=== PATIENT | female | born 1955 | race Two or more races ===

== ENCOUNTER 2016-12-19 14:42 | Emergency (ER) | payer OTHER ==
[~2016-12-19] VITALS: Ht 157.5 cm; Wt 77.1 kg
[2016-12-19 15:38] LABS: Basophils # (auto) 0 uL; Basophils % (auto) 0.4 % (0.0-2.0); DEFINITIVE VIEW TRANSMISSION; Eosinophils # (auto) 0.1 uL; Eosinophils % (auto) 1.6 % (0.0-7.0); Hematocrit 27.1 % (36.0-46.0); Hemoglobin 8.4 g/dL (12.2-16.2); Lymphocytes % (auto) 34.5 % (10.0-50.0); Mean Corpuscular Hemoglobin 23.4 pg (28.0-32.0); Mean Corpuscular Hgb Conc. 31.2 g/dL (32.0-36.0); Mean Corpuscular Volume 75.1 fL (80.0-100.0); Mean Platelet Volume 8.6 fL (7.4-10.4); Monocytes # (auto) 0.4 uL; Monocytes % (auto) 4.8 % (0.0-12.0); Neutrophils # (auto) 5.2 uL; Neutrophils % (auto) 58.7 % (37.0-80.0); Platelet Count (auto) 378 10^3/uL (140-450); Red Cell Distribution Width 17.4 % (11.6-16.0); White Blood Cell 8.8 10^3/uL (4.4-10.8)
[2016-12-19 15:51] LABS: Albumin 3.4 g/dL (3.4-5.0); Calcium 8.4 mg/dL (8.5-10.1); Magnesium 1.5 mg/dL (1.6-2.6); Potassium 4.3 mmol/L (3.5-5.1)
[2016-12-19 15:53] LABS: BUN/Creatinine Ratio 14.5
[2016-12-19 15:55] LABS: Bilirubin, Total 0.3 mg/dL (0.2-1.0)
[2016-12-19] MEDS ORDERED: NALBUPHINE HCL 10 MG/1ml INJECTION IV ONE (16:00)
[2016-12-19] MEDS ORDERED: ONDANSETRON HCL 4 MG/2 ML VIAL IV ONE (16:00)
[2016-12-19 16:26] VITALS: BP 168/77
== END 2016-12-19 17:17 | disposition home or self-care (01) ==
LOC: ER 14:42
DX: S42.292A Other displaced fracture of upper end of left humerus, initial encounter for closed fracture (principal); S80.01XA Contusion of right knee, initial encounter; E11.65 Type 2 diabetes mellitus with hyperglycemia; D50.9 Iron deficiency anemia, unspecified; N39.0 Urinary tract infection, site not specified; E11.21 Type 2 diabetes mellitus with diabetic nephropathy; I10 Essential (primary) hypertension; W01.0XXA Fall on same level from slipping, tripping and stumbling without subsequent striking against object, initial encounter; Y93.89 Activity, other specified; Y92.008 Other place in unspecified non-institutional (private) residence as the place of occurrence of the external cause; Y99.8 Other external cause status; Z90.49 Acquired absence of other specified parts of digestive tract
CPT/HCPCS: 29105; 36415; 73030; 73562; 80053; 83735; 85025; 96374; 96375; 99285; J2300; J2405

== ENCOUNTER → 2023-01-29 | Outpatient (CLI) | payer OTHER ==
[2023-01-29 10:04] LABS: Basophils # (auto) 0 10 ^3/uL (0-0.2); Basophils % (auto) 0.2 % (0.0-2.0); Eosinophils # (auto) 0.1 10 ^3/uL (0-0.8); Eosinophils % (auto) 2.1 % (0.0-7.0); Hemoglobin 10.2 g/dL (12.2-16.2); Lymphocytes # (auto) 3.3 10 ^3/uL (0.4-5.4); Lymphocytes % (auto) 54.1 % (10.0-50.0); Mean Corpuscular Hemoglobin 30.4 pg (28.0-32.0); Mean Corpuscular Volume 92.1 fL (80.0-100.0); Monocytes # (auto) 0 10 ^3/uL (0-1.3); Monocytes % (auto) 0.7 % (0.0-12.0); Neutrophils # (auto) 2.6 10 ^3/uL (1.6-8.6); Neutrophils % (auto) 42.9 % (37.0-80.0); Nucleated Red Blood Cells % 0.1 %; Red Blood Cells 3.36 10^6/uL (4.0-5.20); Red Cell Distribution Width 15.1 % (11.8-14.3)
[2023-01-29 10:12] LABS: Urine Bacteria FEW /hpf (None Seen); Urine Blood Negative /uL (Negative); Urine Specific Gravity 1.006 (1.001-1.035); Urine WBC 8 /hpf (0 - 5); Urine WBC Clumps PRESENT /hpf (None Seen)
[2023-01-29 10:59] LABS: Albumin 3.9 g/dL (3.4-5.0); Calcium 9.3 mg/dL (8.5-10.1); Magnesium 1.2 mg/dL (1.6-2.6); Potassium 3.6 mmol/L (3.5-5.1)
[2023-01-29 11:04] LABS: Bilirubin, Total 0.4 mg/dL (0.2-1.0); Total Protein 7.8 g/dL (6.4-8.2)
[2023-01-29 11:06] LABS: BUN/Creatinine Ratio 17.9 (10.0-20.0)
== END | disposition home or self-care (01) ==
LOC: LAB 09:47
PROVIDERS: ATTEND Internal Medicine
DX: E61.2 Magnesium deficiency (principal); E79.0 Hyperuricemia without signs of inflammatory arthritis and tophaceous disease; R94.6 Abnormal results of thyroid function studies; E55.9 Vitamin D deficiency, unspecified; R82.998 Other abnormal findings in urine; R82.79 Other abnormal findings on microbiological examination of urine; R82.90 Unspecified abnormal findings in urine; D51.9 Vitamin B12 deficiency anemia, unspecified; E78.49 Other hyperlipidemia; R68.89 Other general symptoms and signs; R73.09 Other abnormal glucose
CPT/HCPCS: 36415; 80053; 80061; 81001; 82306; 82607; 83036; 83735; 84443; 84550; 85025; 87086

== ENCOUNTER → 2023-04-02 | Outpatient (CLI) | payer OTHER ==
[2023-04-02 10:36] LABS: Hematocrit 31.4 % (36.0-46.0); Hemoglobin 10.2 g/dL (12.2-16.2); Mean Corpuscular Hgb Conc. 32.3 g/dL (32.0-36.0); Mean Corpuscular Volume 92.7 fL (80.0-100.0); Red Blood Cells 3.39 10^6/uL (4.0-5.20); Red Cell Distribution Width 16.3 % (11.8-14.3); White Blood Cell 6.4 10^3/uL (4.4-10.8)
[2023-04-02 10:58] LABS: Urine Bacteria NONE SEEN /hpf (None Seen); Urine Blood Negative /uL (Negative); Urine Specific Gravity 1.004 (1.001-1.035); Urine WBC 26 /hpf (0 - 5)
[2023-04-02 11:06] LABS: Basophils % (manual) 0 (0.0-2.0); Blast Cells 0; Metamyelocytes % 0; Myelocytes % 0; Promyelocytes % 0
[2023-04-02 11:12] LABS: Albumin 3.6 g/dL (3.4-5.0); Magnesium 1.2 mg/dL (1.6-2.6); Potassium 4.5 mmol/L (3.5-5.1)
[2023-04-02 11:18] LABS: Bilirubin, Total 0.3 mg/dL (0.2-1.0); Total Protein 7.4 g/dL (6.4-8.2); Uric Acid 7.2 mg/dL (2.6-6.0)
[2023-04-02 11:23] LABS: Folate (Folic Acid) > 24.00 ng/mL (5.38-24)
[2023-04-02 12:14] LABS: Band Neutrophils % (manual) 2; Eosinophils % (manual) 6 (0-7); Lymphocytes % (manual) 52 (10.0-50.0); Monocytes % (manual) 5 (0-12); Reactive Lymphocytes 5
== END | disposition home or self-care (01) ==
LOC: LAB 09:58
PROVIDERS: ATTEND Internal Medicine
DX: R73.09 Other abnormal glucose (principal); E78.41 Elevated Lipoprotein(a); R68.84 Jaw pain; E61.2 Magnesium deficiency; E79.0 Hyperuricemia without signs of inflammatory arthritis and tophaceous disease; D51.9 Vitamin B12 deficiency anemia, unspecified; R82.991 Hypocitraturia; R82.90 Unspecified abnormal findings in urine; R94.6 Abnormal results of thyroid function studies
CPT/HCPCS: 36415; 80053; 80061; 81001; 82306; 82607; 82746; 83036; 83735; 84443; 84550; 85007; 85027; 87086

== ENCOUNTER → 2023-07-23 | Outpatient (CLI) | payer OTHER ==
[2023-07-23 09:44] LABS: Basophils # (auto) 0 10 ^3/uL (0-0.2); Basophils % (auto) 0.3 % (0.0-2.0); Eosinophils # (auto) 0.4 10 ^3/uL (0-0.8); Eosinophils % (auto) 4.5 % (0.0-7.0); Hematocrit 35.8 % (36.0-46.0); Hemoglobin 11.8 g/dL (12.2-16.2); Lymphocytes % (auto) 38.6 % (10.0-50.0); Mean Corpuscular Hemoglobin 30.8 pg (28.0-32.0); Mean Corpuscular Hgb Conc. 32.9 g/dL (32.0-36.0); Mean Corpuscular Volume 93.7 fL (80.0-100.0); Monocytes # (auto) 0.5 10 ^3/uL (0-1.3); Monocytes % (auto) 6.4 % (0.0-12.0); Neutrophils # (auto) 3.9 10 ^3/uL (1.6-8.6); Neutrophils % (auto) 50.2 % (37.0-80.0); Red Blood Cells 3.82 10^6/uL (4.0-5.20); White Blood Cell 7.9 10^3/uL (4.4-10.8)
[2023-07-23 10:24] LABS: Urine Bacteria FEW /hpf (None Seen); Urine Blood Negative /uL (Negative); Urine Clarity Clear (Clear); Urine Color Colorless (Yellow); Urine Protein, UAD Negative (Negative); Urine Specific Gravity 1.005 (1.001-1.035); Urine Urobilinogen Normal (Negative); Urine WBC 25 /hpf (0 - 5)
[2023-07-23 10:56] LABS: Alanine Aminotransferase 21 U/L (7-40); Albumin 4.6 g/dL (3.2-4.8); Alkaline Phosphatase 69 U/L (46-116); Anion Gap 7 (5-15); Aspartate Aminotransferase 27 U/L (13-40); Blood Urea Nitrogen 17 mg/dL (9-23); Calcium 9.4 mg/dL (8.7-10.4); Carbon Dioxide 24 mmol/L (20-30); Chloride 104 mmol/L (98-107); Glucose 67 mg/dL (74-106); Magnesium 1.3 mg/dL (1.6-2.6); Potassium 4.4 mmol/L (3.5-5.1); Sodium 135 mmol/L (136-145)
[2023-07-23 10:57] LABS: Bilirubin, Total 0.4 mg/dL (0.2-1.0); Total Protein 7.6 g/dL (5.7-8.2)
[2023-07-23 11:01] LABS: Folate (Folic Acid) > 24.00 ng/mL (>5.38)
== END | disposition home or self-care (01) ==
LOC: LAB 09:20
PROVIDERS: ATTEND Nurse Practitioner Family
DX: M19.011 Primary osteoarthritis, right shoulder (principal); I10 Essential (primary) hypertension; M06.9 Rheumatoid arthritis, unspecified; E11.9 Type 2 diabetes mellitus without complications; E78.5 Hyperlipidemia, unspecified
CPT/HCPCS: 36415; 80053; 81001; 82607; 82746; 83036; 83735; 84443; 84550; 85025; 87086; 87088; 87186

== ENCOUNTER → 2023-11-08 | Outpatient (CLI) | payer OTHER ==
[2023-11-08 10:09] LABS: Hematocrit 36.6 % (36.0-46.0); Mean Corpuscular Hgb Conc. 32.9 g/dL (32.0-36.0); Mean Corpuscular Volume 94.3 fL (80.0-100.0); Red Blood Cells 3.88 10^6/uL (4.0-5.20); Red Cell Distribution Width 13.7 % (11.8-14.3)
[2023-11-08 10:13] LABS: Band Neutrophils % (manual) 0; Basophils % (manual) 0 (0.0-2.0); Blast Cells 0; Metamyelocytes % 0; Myelocytes % 0; Promyelocytes % 0; Reactive Lymphocytes 0
[2023-11-08 10:44] LABS: Urine Bacteria FEW /hpf (None Seen); Urine Blood Negative /uL (Negative); Urine Budding Yeast MODERATE /hpf (None Seen); Urine Clarity Clear (Clear); Urine Color Colorless (Yellow); Urine Protein, UAD Negative (Negative); Urine Specific Gravity 1.008 (1.001-1.035); Urine Urobilinogen Normal (Negative); Urine WBC 33 /hpf (0 - 5)
[2023-11-08 11:02] LABS: Alanine Aminotransferase 24 U/L (7-40); Albumin 4.5 g/dL (3.2-4.8); Alkaline Phosphatase 67 U/L (46-116); Anion Gap 7 (5-15); Aspartate Aminotransferase 28 U/L (13-40); BUN/Creatinine Ratio 13.8 (10.0-20.0); Blood Urea Nitrogen 17 mg/dL (9-23); Carbon Dioxide 28 mmol/L (20-30); Chloride 107 mmol/L (98-107); Cholesterol 203 mg/dL (< 200); Glucose 59 mg/dL (74-106); HDL Cholesterol 76 mg/dL (40-59); LDL Cholesterol 109 mg/dL (< 100); Potassium 4.3 mmol/L (3.5-5.1); Sodium 142 mmol/L (136-145); Triglycerides 108 mg/dL (< 150)
[2023-11-08 11:03] LABS: Bilirubin, Total 0.4 mg/dL (0.2-1.0); Total Protein 7.6 g/dL (5.7-8.2)
[2023-11-08 11:04] LABS: Folate (Folic Acid) > 24.00 ng/mL (>5.38)
[2023-11-08 11:19] LABS: Eosinophils % (manual) 3 (0-7); Lymphocytes % (manual) 63 (10.0-50.0); Monocytes % (manual) 1 (0-12); Platelet Estimate Adequate
[2023-11-08 11:46] LABS: Uric Acid 6.9 mg/dL (3.1-7.8)
[2023-11-08 11:47] LABS: Magnesium 1.3 mg/dL (1.6-2.6)
== END | disposition home or self-care (01) ==
LOC: LAB 09:49
PROVIDERS: ATTEND Internal Medicine
DX: R79.89 Other specified abnormal findings of blood chemistry (principal); E78.9 Disorder of lipoprotein metabolism, unspecified; R68.89 Other general symptoms and signs; R73.09 Other abnormal glucose; E61.2 Magnesium deficiency; E85.9 Amyloidosis, unspecified; R82.90 Unspecified abnormal findings in urine; D51.9 Vitamin B12 deficiency anemia, unspecified
CPT/HCPCS: 36415; 80053; 80061; 81001; 82306; 82607; 82746; 83036; 83735; 84443; 84550; 85007; 85027; 87086; 87088; 87186

== ENCOUNTER → 2023-11-26 | Outpatient (CLI) | payer OTHER ==
[2023-11-26 12:00] LABS: Free T3 2.33 pg/mL (2.3-4.2); T3 Total 1.18 ng/mL (0.60-1.81)
[2023-11-26 12:03] LABS: Free T4 (Free Thyroxine) 1.1 ng/dL (0.89-1.76)
== END | disposition home or self-care (01) ==
LOC: LAB 10:05
PROVIDERS: ATTEND Nurse Practitioner Family
DX: E78.5 Hyperlipidemia, unspecified (principal); R94.6 Abnormal results of thyroid function studies
CPT/HCPCS: 36415; 84439; 84443; 84480; 84481

== ENCOUNTER → 2024-02-24 | Outpatient (CLI) | payer OTHER ==
[2024-02-24 10:28] LABS: Urine Bacteria FEW /hpf (None Seen); Urine Blood Negative /uL (Negative); Urine Clarity Clear (Clear); Urine Color Colorless (Yellow); Urine Protein, UAD Negative (Negative); Urine Specific Gravity 1.008 (1.001-1.035); Urine Urobilinogen Normal (Negative); Urine WBC 85 /hpf (0 - 5); Urine pH 5.5 (5.0-9.0)
[2024-02-24 10:29] LABS: Hemoglobin 12.6 g/dL (12.2-16.2); Mean Corpuscular Hemoglobin 31.4 pg (28.0-32.0); Mean Corpuscular Hgb Conc. 33.3 g/dL (32.0-36.0); Mean Corpuscular Volume 94.3 fL (80.0-100.0); Red Blood Cells 4.03 10^6/uL (4.0-5.20); Red Cell Distribution Width 13.4 % (11.8-14.3); White Blood Cell 7.7 10^3/uL (4.4-10.8)
[2024-02-24 10:44] LABS: Alanine Aminotransferase 31 U/L (7-40); Albumin 4.5 g/dL (3.2-4.8); Alkaline Phosphatase 91 U/L (46-116); Anion Gap 7 (5-15); Aspartate Aminotransferase 25 U/L (13-40); Bilirubin, Total 0.3 mg/dL (0.2-1.0); Blood Urea Nitrogen 19 mg/dL (9-23); Calcium 10.1 mg/dL (8.5-10.1); Carbon Dioxide 27 mmol/L (20-30); Chloride 108 mmol/L (98-107); Cholesterol 209 mg/dL (< 200); Glucose 77 mg/dL (74-106); HDL Cholesterol 73 mg/dL (40-59); LDL Cholesterol 122 mg/dL (< 100); Magnesium 1.4 mg/dL (1.6-2.6); Potassium 4.1 mmol/L (3.5-5.1); Sodium 142 mmol/L (136-145); Total Protein 7.5 g/dL (5.7-8.2); Triglycerides 117 mg/dL (< 150)
[2024-02-24 11:00] LABS: Band Neutrophils % (manual) 0; Basophils % (manual) 0 (0.0-2.0); Blast Cells 0; Metamyelocytes % 0; Myelocytes % 0; Promyelocytes % 0; Reactive Lymphocytes 0
[2024-02-24 11:03] LABS: Folate (Folic Acid) 30.6 ng/mL (>5.38)
[2024-02-24 11:21] LABS: Uric Acid 6.1 mg/dL (3.1-7.8)
[2024-02-24 11:29] LABS: Eosinophils % (manual) 4 (0-7); Lymphocytes % (manual) 63 (10.0-50.0); Monocytes % (manual) 5 (0-12)
[2024-02-24 11:30] LABS: Platelet Estimate Adequate; RBC Morphology Normal
== END | disposition home or self-care (01) ==
LOC: LAB 09:40
PROVIDERS: ATTEND Internal Medicine
DX: E79.0 Hyperuricemia without signs of inflammatory arthritis and tophaceous disease (principal); E61.2 Magnesium deficiency; R78.89 Finding of other specified substances, not normally found in blood; E78.9 Disorder of lipoprotein metabolism, unspecified; R68.89 Other general symptoms and signs; R73.09 Other abnormal glucose; E85.9 Amyloidosis, unspecified; R82.90 Unspecified abnormal findings in urine; D51.9 Vitamin B12 deficiency anemia, unspecified
CPT/HCPCS: 36415; 80053; 80061; 81001; 82043; 82306; 82607; 82746; 83036; 83735; 84443; 84550; 85007; 85027; 87086; 87088; 87186

== ENCOUNTER → 2024-06-01 | Outpatient (CLI) | payer OTHER ==
[2024-06-01 10:47] LABS: Basophils # (auto) 0 10 ^3/uL (0-0.2); Basophils % (auto) 0.3 % (0.0-2.0); Eosinophils # (auto) 0.4 10 ^3/uL (0-0.8); Eosinophils % (auto) 6.1 % (0.0-7.0); Hematocrit 36.8 % (36.0-46.0); Hemoglobin 12.7 g/dL (12.2-16.2); Lymphocytes # (auto) 2.8 10 ^3/uL (0.4-5.4); Lymphocytes % (auto) 48.2 % (10.0-50.0); Mean Corpuscular Hemoglobin 32.2 pg (28.0-32.0); Mean Corpuscular Hgb Conc. 34.4 g/dL (32.0-36.0); Mean Corpuscular Volume 93.7 fL (80.0-100.0); Monocytes # (auto) 0.4 10 ^3/uL (0-1.3); Monocytes % (auto) 7.4 % (0.0-12.0); Neutrophils # (auto) 2.2 10 ^3/uL (1.6-8.6); Nucleated Red Blood Cells % 0.1 %; Platelet Count (auto) 226 10^3/uL (140-450); Red Blood Cells 3.93 10^6/uL (4.0-5.20); Red Cell Distribution Width 13.4 % (11.8-14.3); White Blood Cell 5.8 10^3/uL (4.4-10.8)
[2024-06-01 11:04] LABS: Urine Bacteria FEW /hpf (None Seen); Urine Blood TRACE /uL (Negative); Urine Clarity Turbid (Clear); Urine Color Light-Yellow (Yellow); Urine Protein, UAD TRACE (Negative); Urine Specific Gravity 1.013 (1.001-1.035); Urine Urobilinogen Normal (Negative); Urine WBC 103 /hpf (0 - 5); Urine WBC Clumps PRESENT /hpf (None Seen); Urine pH 5.5 (5.0-9.0)
[2024-06-01 11:30] LABS: Alanine Aminotransferase 36 U/L (7-40); Albumin 4.5 g/dL (3.2-4.8); Alkaline Phosphatase 96 U/L (46-116); Anion Gap 7 (5-15); Aspartate Aminotransferase 32 U/L (13-40); Bilirubin, Total 0.4 mg/dL (0.2-1.0); Blood Urea Nitrogen 26 mg/dL (9-23); Carbon Dioxide 25 mmol/L (20-30); Chloride 105 mmol/L (98-107); Cholesterol 210 mg/dL (< 200); Glucose 143 mg/dL (74-106); HDL Cholesterol 78 mg/dL (40-59); LDL Cholesterol 118 mg/dL (< 100); Magnesium 1.5 mg/dL (1.6-2.6); Potassium 4.5 mmol/L (3.5-5.1); Sodium 137 mmol/L (136-145); Total Protein 7.5 g/dL (5.7-8.2); Triglycerides 80 mg/dL (< 150)
[2024-06-01 11:59] LABS: Uric Acid 6.2 mg/dL (3.1-7.8)
[2024-06-01 12:01] LABS: Folate (Folic Acid) > 48.00 ng/mL (>5.38)
== END | disposition home or self-care (01) ==
LOC: LAB 09:52
PROVIDERS: ATTEND Internal Medicine
DX: E11.9 Type 2 diabetes mellitus without complications (principal); D63.8 Anemia in other chronic diseases classified elsewhere; Z68.33 Body mass index [BMI] 33.0-33.9, adult
CPT/HCPCS: 36415; 80053; 80061; 81001; 82306; 82607; 82746; 83036; 83735; 84443; 84550; 85025; 87086; 87088; 87186

== ENCOUNTER → 2024-07-14 | Outpatient (CLI) | payer OTHER ==
[2024-07-14 11:26] LABS: Potassium 4.7 mmol/L (3.5-5.1)
[2024-07-14 11:28] LABS: Calcium 10.2 mg/dL (8.7-10.4)
[2024-07-14 11:34] LABS: Albumin 4.5 g/dL (3.2-4.8)
[2024-07-14 11:35] LABS: Phosphorus 3.7 mg/dL (2.4-5.1)
== END | disposition home or self-care (01) ==
LOC: LAB 10:19
PROVIDERS: ATTEND Internal Medicine
DX: E11.9 Type 2 diabetes mellitus without complications (principal); E78.5 Hyperlipidemia, unspecified; M06.9 Rheumatoid arthritis, unspecified; D63.8 Anemia in other chronic diseases classified elsewhere
CPT/HCPCS: 36415; 80069; 83036

== ENCOUNTER → 2024-10-05 | Outpatient (CLI) | payer OTHER ==
[2024-10-05 10:23] LABS: Basophils # (auto) 0 10 ^3/uL (0-0.2); Basophils % (auto) 0.3 % (0.0-2.0); Eosinophils # (auto) 0.5 10 ^3/uL (0-0.8); Eosinophils % (auto) 9.1 % (0.0-7.0); Hematocrit 35.7 % (36.0-46.0); Hemoglobin 12.2 g/dL (12.2-16.2); Lymphocytes # (auto) 2.7 10 ^3/uL (0.4-5.4); Lymphocytes % (auto) 45.3 % (10.0-50.0); Mean Corpuscular Hemoglobin 32.1 pg (28.0-32.0); Mean Corpuscular Hgb Conc. 34.1 g/dL (32.0-36.0); Mean Corpuscular Volume 94.2 fL (80.0-100.0); Monocytes # (auto) 0.5 10 ^3/uL (0-1.3); Monocytes % (auto) 8.2 % (0.0-12.0); Neutrophils # (auto) 2.2 10 ^3/uL (1.6-8.6); Neutrophils % (auto) 37.1 % (37.0-80.0); Platelet Count (auto) 222 10^3/uL (140-450); Red Blood Cells 3.79 10^6/uL (4.0-5.20); Red Cell Distribution Width 14.1 % (11.8-14.3)
[2024-10-05 10:58] LABS: Alanine Aminotransferase 36 U/L (7-40); Albumin 4.6 g/dL (3.2-4.8); Alkaline Phosphatase 79 U/L (46-116); Anion Gap 6 (5-15); Aspartate Aminotransferase 37 U/L (13-40); Bilirubin, Total 0.5 mg/dL (0.2-1.0); Blood Urea Nitrogen 18 mg/dL (9-23); Calcium 10.1 mg/dL (8.7-10.4); Carbon Dioxide 27 mmol/L (20-31); Chloride 104 mmol/L (98-107); Cholesterol 185 mg/dL (< 200); Potassium 4.3 mmol/L (3.5-5.1); Sodium 137 mmol/L (136-145); Total Protein 7.4 g/dL (5.7-8.2); Triglycerides 142 mg/dL (< 150)
[2024-10-05 11:02] LABS: Urine Bacteria FEW /hpf (None Seen); Urine Blood Negative /uL (Negative); Urine Clarity Clear (Clear); Urine Color Colorless (Yellow); Urine Protein, UAD Negative (Negative); Urine Specific Gravity 1.005 (1.001-1.035); Urine Squamous Epithelial Cell FEW /hpf (<5); Urine Urobilinogen Normal (Negative); Urine WBC 35 /HPF (0-5); Urine WBC Clumps PRESENT /hpf (None Seen); Urine pH 5.5 (5.0-9.0)
[2024-10-05 11:04] LABS: BUN/Creatinine Ratio 12.4 (10.0-20.0)
[2024-10-05 11:09] LABS: Glucose 126 mg/dL (74-106)
[2024-10-05 11:10] LABS: HDL Cholesterol 63 mg/dL (40-59); LDL Cholesterol 111 mg/dL (< 100)
[2024-10-05 11:27] LABS: Uric Acid 6.9 mg/dL (3.1-7.8)
== END | disposition home or self-care (01) ==
LOC: LAB 09:52
PROVIDERS: ATTEND Internal Medicine
DX: R79.89 Other specified abnormal findings of blood chemistry (principal); R68.89 Other general symptoms and signs; R73.09 Other abnormal glucose; E55.9 Vitamin D deficiency, unspecified; E61.2 Magnesium deficiency; R94.6 Abnormal results of thyroid function studies; R82.90 Unspecified abnormal findings in urine; R82.79 Other abnormal findings on microbiological examination of urine; D51.9 Vitamin B12 deficiency anemia, unspecified
CPT/HCPCS: 36415; 80053; 80061; 81001; 82306; 82746; 83036; 84443; 84550; 85025; 87086

== ENCOUNTER 2024-11-13 05:48 | Emergency (ER) | payer OTHER ==
[~2024-11-13] VITALS: Ht 170.2 cm; Wt 77.1 kg
[2024-11-13 06:19] VITALS: PULSE 84; RESP 23; O2SAT 98
--- NOTE | 2024-11-13 06:33 | ED.PDOC ---
History of present illness HPI Comments A 69 year old female brought in by EMS presents to the ED with a chief complaint of hypoglycemia onset today (11/13/24). Patient states she woke up experiencing dizziness and confusion, family called 911. Upon EMS arrival, family tells EMS patient was lethargic and altered. Patient's BS was 40, was given 250 mL D-10 in route, BS increased to 142. During assessment patient states symptoms have improved. PMHx DM, HTN. Denies nausea, vomiting, diarrhea, chest pain, abdominal pain, shortness of breath, headache. No other symptoms or modifying factors present at this time. 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 History Family History Family History: Unobtainable Social History Smoker: Non-Smoker Alcohol: Denies ETOH Use Drugs: Denies Drug Use Lives In: Home Constitutional: denies: chills, diaphoresis, fatigue, fever, malaise, sweats, weakness, others EENTM: denies: blurred vision, double vision, ear bleeding, ear discharge, ear drainage, ear pain, ear ringing, eye pain, eye redness, hearing loss, mouth pain, mouth swelling, nasal discharge, nose bleeding, nose congestion, nose pain, photophobia, tearing, throat pain, throat swelling, voice changes, others Respiratory: denies: cough, hemoptysis, orthopnea, SOB at rest, shortness of breath, SOB with excertion, stridor, wheezing, others Cardiovascular: denies: chest pain, dizzy spells, diaphoresis, Dyspnea on exertion, edema, irregular heart beat, left arm pain, lightheadedness, palpitations, PND, syncope, others Gastrointestinal: denies: abdomen distended, abdominal pain, blood streaked bowels, constipated, diarrhea, dysphagia, difficulty swallowing, hematemesis, melena, nausea, poor appetite, poor fluid intake, rectal bleeding, rectal pain, vomiting, others Genitourinary: denies: abnormal vagina bleeding, burning, dyspareunia, dysuria, flank pain, frequency, hematuria, incontinence, pain, , vagina discharge, urgency, others Neurological: reports: dizziness, others (confusion); denies: fainting, headache, left sided numbness, left sided weakness, numbness, paresthesia, pre- existing deficit, right sided numbness, right sided weakness, seizure, speech problems, tingling, tremors, weakness Musculoskeletal: denies: back pain, gout, joint pain, joint swelling, muscle pain, muscle stiffness, neck pain, others Integumetry: denies: bruises, change in color, change in hair/nails, dryness, laceration, lesions, lumps, rash, wounds, others Allergic/Immunocompromised: denies: Difficulty Healing, Frequent Infections, Hives, Itching, others Hematologic/Lymphatic: denies: anemia, blood clots, easy bleeding, easy bruising, swollen glands, others Endocrine: denies: excessive hunger, excessive sweating, excessive thirst, excessive urination, flushing, intolerance to cold, intolerance to heat, unexplained weight gain, unexplained weight loss, others Psychiatric: denies: anxiety, bipolar disorder, depression, hopeless, panic di sorder, schizophrenia, sleepless, suicidal, others All Other Systems: Reviewed and Negative Physical Exam General Appearance: Moderate Distress HEENT: Normal ENT Inspection, Pharynx Normal, TMs Normal Neck: Full Range of Motion, Non-Tender, Normal, Normal Inspection Respiratory: Chest Non-Tender, Lungs Clear, No Accessory Muscle Use, No Respiratory Distress, Normal Breath Sounds Cardiovascular: No Edema, No JVD, No Murmur, No Gallop, Normal Peripheral Pulses, Regular Rate/Rhythm Breast Exam: Deferred Gastrointestinal: No Organomegaly, Non Tender, No Pulsatile Mass, Normal Bowel Sounds, Soft Genitalia: Deferred Pelvic: Deferred Rectal: Deferred Extremities: No calf tenderness, Normal capillary refill, Normal inspection, Normal range of motion, Non-tender, No pedal edema Musculoskeletal : Apperance: Normal Neurologic: Alert, No Motor Deficits, No Sensory Deficits Cerebellar Function: NOT DONE Reflexes: NOT DONE Skin: Normal Color Peripheral Pulses: 3+ Radial (R), 3+ Radial (L) Lymphatic: No Adenopathy Was a procedure done? Was a procedure done?: No Differential Diagnosis (DM) Differential Diagnosis: DKA, Electrolyte Abnormality X-Ray, Labs, Meds, VS Vital Signs Date Time Temp Pulse Resp B/P (MAP) Pulse Ox O2 Delivery O2 Flow Rate FiO2 11/13/24 06:38 174/73 11/13/24 06:19 84 23 98 Room Air* 0 21 11/13/24 06:19 97.8 84 23 174/73 (106) 98 97.8 11/13/24 06:01 88 11/13/24 05:55 98.0 90 16 179/89 (119) 94 Lab Test 11/13/24 07:29 11/13/24 06:46 Range/Units POC Glucose 63 L 70-106 mg/dl White Blood Count Pending Red Blood Count Pending Hemoglobin Pending Hematocrit Pending Mean Corpuscular Volume Pending Mean Corpuscular Hemoglobin Pending Mean Corpuscular Hemoglobin Concent Pending Red Cell Distribution Width Pending Platelet Count Pending Mean Platelet Volume Pending Neutrophils (%) (Auto) Pending Lymphocytes (%) (Auto) Pending Monocytes (%) (Auto) Pending Basophils (%) (Auto) Pending Neutrophils # (Auto) Pending Lymphocytes # (Auto) Pending Monocytes # (Auto) Pending Sodium Level 131 L 136-145 mmol/L Potassium Level 3.8 3.5-5.1 mmol/L Chloride Level 97 L 98-107 mmol/L Carbon Dioxide Level 23 20-31 mmol/L Anion Gap 11 5-15 Blood Urea Nitrogen 13 9-23 mg/dL Creatinine 1.23 H 0.550-1.02 mg/dL Glomerular Filtration Rate Calc 47 >90 mL/min BUN/Creatinine Ratio 10.6 10.0-20.0 Serum Glucose 50 L 74-106 mg/dL Calcium Level 9.3 8.7-10.4 mg/dL Troponin I High Sensitivity 5 </=34 ng/L Current Medications Medications (Trade) Dose Ordered Sig/Tab Route Start Time Stop Time Status Last Admin Clonidine HCl (Catapres Tablet) 0.2 mg ONCE ONCE PO 11/13/24 06:45 11/13/24 06:46 DC 11/13/24 06:38 Patient alert. She was feeling dizzy before calling the paramedics. Blood sugar was low for which she was given an dextrose prior to coming to the ER. States that she is feeling much better. Blood pressure slightly elevated. Was given clonidine. Denies chest pain. No leg swelling. No shortness a breath. No headache. Good muscle strength. No sign of any acute condition. Reviewed her previous visit. Explained to the patient. Continue monitoring. Time of 1ST Reevaluation: 07:02 Reevaluation 1ST: Improved Patient Education/Counseling: Diagnosis, Treatment, Prognosis Family Education/Counseling: No Family Present Additional Information The following tests were ordered, and results were reviewed by me: EKG, TROP, CBC, UA, BMP Additional Information was gathered from interviewing the following independent historians: EMS I discussed treatment and results with medical personnel and: patient Departure 1 Departure Time of Disposition: 06:39 Impression: Primary Impression: Hypoglycemia Additional Impressions: Autonomic disorder Hypertensive urgency Disposition: ADMITTED INPATIENT Admit to: Med Surg Condition: Guarded Critical Care Note Critical Care Time?: No Stability Stability form required: No Heart Score Heart Score: Heart Score Response (Comments) Value History Slightly Suspicious 0 EKG Normal 0 Age >65 2 Risk Factors >3 or Hx ASHD 2 Troponin Normal limit 0 Total 4 I personally scribed for VIVIANA HENRIQUEZ MD ([email or web address]) on 11/13/24 at 06:33. Electronically submitted by Radha Ryan ([email or web address]). I personally scribed for VIVIANA HENRIQUEZ MD ([email or web address]) on 11/13/24 at 06:35. Electronically submitted by Radha Ryan ([email or web address]). I personally scribed for VIVIANA HENRIQUEZ MD ([email or web address]) on 11/13/24 at 07:53. Electronically submitted by Radha Ryan ([email or web address]). VIVIANA HENRIQUEZ MD Nov 13, 2024 06:33
[2024-11-13] MEDS: cloNIDine HCL 0.1 MG TAB PO ONE (06:38)
--- NOTE | 2024-11-13 06:41 | ECG ---
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
[2024-11-13 07:35] VITALS: TEMP 97.9
[2024-11-13 07:37] LABS: Potassium 3.8 mmol/L (3.5-5.1)
[2024-11-13 07:38] LABS: Anion Gap 11 (5-15); Calcium 9.3 mg/dL (8.7-10.4); Carbon Dioxide 23 mmol/L (20-31); Chloride 97 mmol/L (98-107); Sodium 131 mmol/L (136-145)
[2024-11-13 07:43] LABS: BUN/Creatinine Ratio 10.6 (10.0-20.0); Blood Urea Nitrogen 13 mg/dL (9-23)
[2024-11-13 07:44] LABS: Glucose 50 mg/dL (74-106)
[2024-11-13 08:00] VITALS: BP 133/70
[2024-11-13 08:30] LABS: Hematocrit 35.4 % (36.0-46.0); Hemoglobin 12.1 g/dL (12.2-16.2); Mean Corpuscular Hemoglobin 32.3 pg (28.0-32.0); Mean Corpuscular Hgb Conc. 34.2 g/dL (32.0-36.0); Mean Corpuscular Volume 94.5 fL (80.0-100.0); Platelet Count (auto) 199 10^3/uL (140-450); Red Blood Cells 3.74 10^6/uL (4.0-5.20); Red Cell Distribution Width 13.7 % (11.8-14.3); White Blood Cell 3.1 10^3/uL (4.4-10.8)
[2024-11-13 08:31] VITALS: PULSE 84; RESP 19; O2SAT 99
[2024-11-13 08:45] LABS: Band Neutrophils % (manual) 0; Basophils % (manual) 0 (0.0-2.0); Blast Cells 0; Metamyelocytes % 0; Myelocytes % 0; Promyelocytes % 0; Reactive Lymphocytes 0
[2024-11-13 11:40] LABS: Eosinophils % (manual) 2 (0-7); Lymphocytes % (manual) 19 (10.0-50.0); Monocytes % (manual) 13 (0-12); Platelet Estimate Adequate
== END 2024-11-13 09:25 | disposition home or self-care (01) ==
LOC: ER 05:48 → EDBD 05:48 → ER 09:25
DX: E11.649 Type 2 diabetes mellitus with hypoglycemia without coma (principal); G90.9 Disorder of the autonomic nervous system, unspecified; I16.0 Hypertensive urgency; E11.9 Type 2 diabetes mellitus without complications; Z98.890 Other specified postprocedural states; Z90.49 Acquired absence of other specified parts of digestive tract
CPT/HCPCS: 36415; 80048; 82947; 82962; 84484; 85007; 85027; 93005

== ENCOUNTER → 2025-01-02 | Outpatient (CLI) | payer OTHER ==
[2025-01-02 10:30] LABS: Urine Bacteria MOD /hpf (None Seen); Urine Blood Negative /uL (Negative); Urine Budding Yeast OCCASIONAL /hpf (None Seen); Urine Clarity Clear (Clear); Urine Color Light-Yellow (Yellow); Urine Protein, UAD Negative (Negative); Urine Specific Gravity 1.009 (1.001-1.035); Urine Squamous Epithelial Cell FEW /hpf (<5); Urine Urobilinogen Normal (Negative); Urine WBC 17 /HPF (0-5)
[2025-01-02 10:32] LABS: Basophils # (auto) 0 10 ^3/uL (0-0.2); Basophils % (auto) 0.5 % (0.0-2.0); Eosinophils # (auto) 0.3 10 ^3/uL (0-0.8); Eosinophils % (auto) 5.2 % (0.0-7.0); Hematocrit 37.4 % (36.0-46.0); Hemoglobin 12.7 g/dL (12.2-16.2); Lymphocytes # (auto) 2.4 10 ^3/uL (0.4-5.4); Lymphocytes % (auto) 46.5 % (10.0-50.0); Mean Corpuscular Hemoglobin 32.6 pg (28.0-32.0); Mean Corpuscular Hgb Conc. 34.1 g/dL (32.0-36.0); Mean Corpuscular Volume 95.7 fL (80.0-100.0); Monocytes # (auto) 0.3 10 ^3/uL (0-1.3); Monocytes % (auto) 6.8 % (0.0-12.0); Neutrophils # (auto) 2.1 10 ^3/uL (1.6-8.6); Platelet Count (auto) 265 10^3/uL (140-450); Red Blood Cells 3.91 10^6/uL (4.0-5.20); Red Cell Distribution Width 13.8 % (11.8-14.3); White Blood Cell 5.1 10^3/uL (4.4-10.8)
[2025-01-02 10:40] LABS: Alanine Aminotransferase 25 U/L (7-40); Albumin 4.7 g/dL (3.2-4.8); Alkaline Phosphatase 73 U/L (46-116); Anion Gap 8 (5-15); Aspartate Aminotransferase 30 U/L (13-40); BUN/Creatinine Ratio 11.7 (10.0-20.0); Blood Urea Nitrogen 14 mg/dL (9-23); Calcium 10.2 mg/dL (8.7-10.4); Carbon Dioxide 26 mmol/L (20-31); Chloride 105 mmol/L (98-107); Magnesium 1.6 mg/dL (1.6-2.6); Potassium 4.3 mmol/L (3.5-5.1); Sodium 139 mmol/L (136-145); Total Protein 7.5 g/dL (5.7-8.2); Triglycerides 147 mg/dL (< 150)
[2025-01-02 10:41] LABS: Bilirubin, Total 0.5 mg/dL (0.2-1.0)
[2025-01-02 10:43] LABS: Cholesterol 207 mg/dL (< 200); Glucose 107 mg/dL (74-106); HDL Cholesterol 72 mg/dL (40-59); LDL Cholesterol 110 mg/dL (< 100)
[2025-01-02 10:53] LABS: Uric Acid 6.3 mg/dL (3.1-7.8)
[2025-01-02 11:01] LABS: Folate (Folic Acid) > 48.00 ng/mL (>5.38)
== END | disposition home or self-care (01) ==
LOC: LAB 09:45
PROVIDERS: ATTEND Internal Medicine
DX: R68.89 Other general symptoms and signs (principal); R79.89 Other specified abnormal findings of blood chemistry; R73.09 Other abnormal glucose; R94.6 Abnormal results of thyroid function studies; E55.9 Vitamin D deficiency, unspecified; E61.2 Magnesium deficiency; R82.90 Unspecified abnormal findings in urine
CPT/HCPCS: 36415; 80053; 80061; 81001; 82306; 82607; 82746; 83036; 83735; 84443; 84550; 85025; 87086

== ENCOUNTER 2025-04-04 09:33 | Outpatient (CLI) | payer OTHER ==
[2025-04-04 10:12] LABS: Hematocrit 37.4 % (36.0-46.0); Hemoglobin 12.9 g/dL (12.2-16.2); Mean Corpuscular Hemoglobin 32.2 pg (28.0-32.0); Mean Corpuscular Volume 93.4 fL (80.0-100.0); Nucleated Red Blood Cells % 0.0 %
[2025-04-04 10:28] LABS: Urine Protein, UAD Negative (Negative)
[2025-04-04 10:37] LABS: Alkaline Phosphatase 83 U/L (46-116); Anion Gap 11 (5-15); BUN/Creatinine Ratio 12.7 (10.0-20.0); Blood Urea Nitrogen 16 mg/dL (9-23); Carbon Dioxide 26 mmol/L (20-31); Chloride 102 mmol/L (98-107); Potassium 3.9 mmol/L (3.5-5.1); Sodium 139 mmol/L (136-145); Total Protein 7.3 g/dL (5.7-8.2)
[2025-04-04 10:38] LABS: Bilirubin, Total 0.6 mg/dL (0.2-1.0)
[2025-04-04 10:40] LABS: Alanine Aminotransferase 41 U/L (7-40); Calcium 10.7 mg/dL (8.7-10.4); Cholesterol 272 mg/dL (< 200); Glucose 154 mg/dL (74-106); HDL Cholesterol 65 mg/dL (40-59); Triglycerides 171 mg/dL (< 150)
[2025-04-04 11:00] LABS: Albumin 4.6 g/dL (3.2-4.8)
[2025-04-04 11:32] LABS: Uric Acid 6.4 mg/dL (3.1-7.8)
== END 2025-04-04 17:00 | disposition home or self-care (01) ==
LOC: LAB 09:33
PROVIDERS: ATTEND Nurse Practitioner Family
DX: E11.9 Type 2 diabetes mellitus without complications (principal); E78.49 Other hyperlipidemia; E61.2 Magnesium deficiency; E79.0 Hyperuricemia without signs of inflammatory arthritis and tophaceous disease; D51.9 Vitamin B12 deficiency anemia, unspecified; R82.79 Other abnormal findings on microbiological examination of urine; R82.998 Other abnormal findings in urine; R94.6 Abnormal results of thyroid function studies; R68.89 Other general symptoms and signs
CPT/HCPCS: 36415; 80053; 80061; 81001; 82306; 82607; 82746; 83036; 84443; 84480; 84550; 85025; 87086

== ENCOUNTER → 2025-06-28 | Outpatient (CLI) | payer OTHER ==
[2025-06-28 10:41] LABS: Hematocrit 38.2 % (36.0-46.0); Hemoglobin 12.7 g/dL (12.2-16.2); Mean Corpuscular Hemoglobin 30.7 pg (28.0-32.0); Mean Corpuscular Volume 92.0 fL (80.0-100.0); Nucleated Red Blood Cells % 0.1 %
[2025-06-28 10:45] LABS: Urine Protein, UAD Negative (Negative)
[2025-06-28 11:13] LABS: Alanine Aminotransferase 39 U/L (7-40); Alkaline Phosphatase 109 U/L (46-116); Anion Gap 10 (5-15); Calcium 10.3 mg/dL (8.7-10.4); Carbon Dioxide 29 mmol/L (20-31); Chloride 99 mmol/L (98-107); Potassium 4.3 mmol/L (3.5-5.1); Sodium 138 mmol/L (136-145)
[2025-06-28 11:14] LABS: Albumin 4.5 g/dL (3.2-4.8); BUN/Creatinine Ratio 14.1 (10.0-20.0); Bilirubin, Total 0.6 mg/dL (0.2-1.0); Blood Urea Nitrogen 22 mg/dL (9-23); Cholesterol 215 mg/dL (< 200); Glucose 269 mg/dL (74-106); HDL Cholesterol 56 mg/dL (40-59); Total Protein 7.8 g/dL (5.7-8.2); Triglycerides 201 mg/dL (< 150)
[2025-06-28 11:37] LABS: Uric Acid 6.5 mg/dL (3.1-7.8)
== END | disposition home or self-care (01) ==
LOC: LAB 10:15
PROVIDERS: ATTEND Internal Medicine
DX: E78.49 Other hyperlipidemia (principal); E61.2 Magnesium deficiency; E79.0 Hyperuricemia without signs of inflammatory arthritis and tophaceous disease; R68.89 Other general symptoms and signs; R73.09 Other abnormal glucose; R94.6 Abnormal results of thyroid function studies; R82.998 Other abnormal findings in urine; E55.9 Vitamin D deficiency, unspecified; R82.79 Other abnormal findings on microbiological examination of urine; D51.9 Vitamin B12 deficiency anemia, unspecified
CPT/HCPCS: 36415; 80053; 80061; 81001; 82306; 82607; 82746; 83036; 84443; 84550; 85025; 87086; 87088; 87186

== ENCOUNTER 2025-09-07 22:05 | Inpatient (IN) | payer OTHER ==
[~2025-09-07] VITALS: Ht 152.4 cm; Wt 63.6 kg
--- NOTE | 2025-09-07 22:21 | ECG ---
[facility] Test Date: 2025-09-07 Test Time: 22:16:36 Pat Name: KACIE MILES Department: [facility] ED Patient ID: [id number] Room: [address] [place] [address] Gender: F Guidance Counselor: shahid : 1955 Requested By: OC PATE Order Number: [id number] Reading MD: Stephane Pineda Measurements Intervals [place] Rate: 96 P: 38 DC: 143 QRS: 51 QRSD: 84 T: 61 QT: 360 QTc: 455 Interpretive Statements Sinus rhythm Electronically Signed On 09-13-2025 17:24:46 PST by Stephane Pineda Please click the below link to view image of tracing.
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
[2025-09-07 23:00] LABS: Hematocrit 38.1 % (36.0-46.0); Hemoglobin 12.7 g/dL (12.2-16.2); Mean Corpuscular Hemoglobin 31.1 pg (28.0-32.0); Mean Corpuscular Volume 93.5 fL (80.0-100.0); Nucleated Red Blood Cells % 0.1 %
[2025-09-07 23:35] LABS: Chloride 103 mmol/L (98-107); Potassium 4.6 mmol/L (3.5-5.1); Sodium 137 mmol/L (136-145)
[2025-09-07 23:36] LABS: Anion Gap 8 (5-15); Carbon Dioxide 26 mmol/L (20-31)
[2025-09-07 23:37] LABS: Calcium 9.6 mg/dL (8.7-10.4)
[2025-09-07 23:41] LABS: BUN/Creatinine Ratio 15.9 (10.0-20.0)
[2025-09-07 23:49] LABS: Blood Urea Nitrogen 24 mg/dL (9-23); Glucose 270 mg/dL (74-106)
[2025-09-08] MEDS: SODIUM CHLORIDE 0.9% 1,000 ML IV ONE (00:09)
[2025-09-08 00:27] VITALS: PULSE 82; RESP 16; O2SAT 99
[2025-09-08] MEDS ORDERED: ONDANSETRON HCL 4 MG/2 ML VIAL IV PRN (02:45)
[2025-09-08 03:34] LABS: Hematocrit 37.6 % (36.0-46.0); Hemoglobin 12.8 g/dL (12.2-16.2); Mean Corpuscular Hemoglobin 31.7 pg (28.0-32.0); Mean Corpuscular Volume 93.4 fL (80.0-100.0); Nucleated Red Blood Cells % 0.1 %
[2025-09-08 03:47] LABS: Alanine Aminotransferase 29 U/L (7-40); Albumin 4.6 g/dL (3.2-4.8); Alkaline Phosphatase 90 U/L (46-116); Anion Gap 11 (5-15); BUN/Creatinine Ratio 14.8 (10.0-20.0); Blood Urea Nitrogen 19 mg/dL (9-23); Calcium 9.7 mg/dL (8.7-10.4); Carbon Dioxide 24 mmol/L (20-31); Chloride 106 mmol/L (98-107); Potassium 4.0 mmol/L (3.5-5.1); Sodium 141 mmol/L (136-145); Total Protein 8.1 g/dL (5.7-8.2)
[2025-09-08 03:48] LABS: Bilirubin, Total 0.4 mg/dL (0.2-1.0)
--- NOTE | 2025-09-08 03:56 | DVH ---
COMPUTERIZED TOMOGRAPHY OF THE HEAD WITHOUT CONTRAST REASON FOR STUDY: Syncope COMPARISON: None TECHNIQUE: Helical tomographic scans were obtained through the brain. 2-D coronal and sagittal reformatted images are provided. Radiation optimization: All CT scans at this facility use at least one of these dose optimization techniques: Automated exposure control mA and/or kV adjustment per patient size (includes targeted exams where dose is matched to clinical indication) or iterative reconstruction. RADIATION DOSE: CTDI: 53.0 mGy DLP: 849.69 mGy-cm FINDINGS: No suspicious intracranial hyperdensity to suggest acute blood. There is no mass effect nor midline shift. There is mild generalized volume loss with compensatory enlargement of the CSF spaces. There is no hydrocephalus. The suprasellar cistern is intact. There are scattered periventricular and deep white matter hypodensities that are most consistent with chronic microangiopathic changes. The calvarium is intact. The visualized mastoid air cells and paranasal sinuses are clear. IMPRESSION: No acute intracranial abnormality. Mild generalized volume loss with chronic small vessel ischemic change.
[2025-09-08 04:00] LABS: Glucose 116 mg/dL (74-106)
[2025-09-08 04:06] LABS: INR 0.97 (0.9-1.15); Partial Thromboplastin Time 25.2 SEC (24.5-34.5); Prothrombin Time 10.3 sec (9.3-11.8)
[2025-09-08] MEDS: hydroCHLOROthiazide 25 MG TAB PO SCH (04:16)
[2025-09-08] MEDS: LOSARTAN POTASSIUM 50 MG TAB PO ONE (04:16)
[2025-09-08 04:21] LABS: Triglycerides 208 mg/dL (< 150)
[2025-09-08 04:22] LABS: Cholesterol 220 mg/dL (< 200); HDL Cholesterol 68 mg/dL (40-59)
--- NOTE | 2025-09-08 05:26 | DVHHPRES ---
History of Present Illness Resident Creating Document: YOSELIN CHEN RESIDENT History of Present Illness Patient is a 70-year-old female with past medical history of hypertension, diabetes, dyslipidemia, CKD who presented to the ED with chief complaints of dizziness and syncopal episode. As per patient and son at bedside They had a argument and patient started hyperventilating, feeling weak and dizzy after which she had a syncopal episode and had loss of consciousness for almost 4 minutes. states that the [id number] caught her while she was falling so patient did not hit her head. Patient denies any chest pain, shortness of breath, nausea, vomiting, dizziness. On arrival blood pressure was 204/73. PMHx: hypertension, diabetes, dyslipidemia, CKD PSHx: Cholecystectomy, Family history: reviewed, noncontributory Social history: denies smoking, drinking, drug use Home medication: glipizide, insulin, atorvastatin, pantoprazole Allergic history: denies Patient seen in the lobby. Patient denies any shortness of breath, dizziness, chest pain, palpitations, nausea vomiting. Blood pressure was 178/81. Review of Systems Constitutional: Yes: Weakness, Other (dizzy); No: Fever, Chills, Sweats, Malaise Eyes: No: Pain, Vision change, Conjunctivae inflammation, Eyelid inflammation, Other, Redness ENT: No: Ear pain, Ear discharge, Nose pain, Nose discharge, Nose congestion, Mouth pain, Mouth swelling, Throat pain, Throat swelling, Other Cardiovascular: No: Chest Pain, Palpitations, Orthopnea, Paroxysmal Noc. Dyspnea, Edema, Lt Headedness, Other Gastrointestinal: No: Nausea, Vomiting, Abdominal Pain, Diarrhea, Constipation, Melena, Hematochezia, Other Genitourinary: No Dysuria, No Frequency, No Incontinence, No Hematuria, No Retention, No Other Musculoskeletal: No: other, neck pain, shoulder pain, arm pain, back pain, hand pain, leg pain, foot pain Skin: No: Rash, Lesions, Jaundice, Bruising, Other Neurological: No: Weakness, Numbness, Incoordination, Change in speech, Confusion, Seizures, Other Allergies: Coded Allergies: NO KNOWN ALLERGIES (Unverified , 12/19/16) Exam Vital Signs Vital Signs Date Time Temp Pulse Resp B/P (MAP) Pulse Ox O2 Delivery O2 Flow Rate FiO2 09/08/25 02:23 77 18 178/81 (113) 100 09/08/25 00:27 Room Air* 0 21 09/08/25 00:20 98.5 98.5 Exam General: Patient alert and oriented in person, place and time. Patient following commands. HEENT: Normocephalic, atraumatic, moist mucous membranes Respiratory/pulmonary: Clear lungs bilaterally, vesicular murmurs present in almost all lung valle, no associated crackles or wheezes. Cardiovascular: Normal heart sounds S1 and S2 with no associated murmurs Abdomen: Abdomen nondistended, there is no pain to palpation in any of the abdom inal quadrants, no palpable masses. Extremities: There is no peripheral edema present at the lower extremities. Peripheral Pulses: 3+ Radial (R). 3+ Radial (L). 3+ Dorsalis pedis (R). 3+ Dorsalis pedis(L) Skin: No rashes or pruritus, there is no sacral edema present at this time. Neurological: Intact cranial nerves with no focal neurologic deficits Labs/Xrays Labs Test 09/08/25 03:14 09/08/25 01:25 09/07/25 22:44 Range/Units White Blood Count 8.4 # 4.4-10.8 10^3/uL Red Blood Count 4.03 4.0-5.20 10^6/uL Hemoglobin 12.8 12.2-16.2 g/dL Hematocrit 37.6 36.0-46.0 % Mean Corpuscular Volume 93.4 80.0-100.0 fL Mean Corpuscular Hemoglobin 31.7 28.0-32.0 pg Mean Corpuscular Hemoglobin Concent 33.9 32.0-36.0 g/dL Red Cell Distribution Width 13.4 11.8-14.3 % Platelet Count 263 140-450 10^3/uL Mean Platelet Volume 7.9 6.9-10.8 fL Neutrophils (%) (Auto) 49.0 37.0-80.0 % Lymphocytes (%) (Auto) 42.6 10.0-50.0 % Monocytes (%) (Auto) 7.1 0.0-12.0 % Eosinophils (%) (Auto) 1.0 0.0-7.0 % Basophils (%) (Auto) 0.3 0.0-2.0 % Neutrophils # (Auto) 4.1 1.6-8.6 10 ^3/uL Lymphocytes # (Auto) 3.6 0.4-5.4 10 ^3/uL Monocytes # (Auto) 0.6 0-1.3 10 ^3/uL Eosinophils # (Auto) 0.1 0-0.8 10 ^3/uL Basophils # (Auto) 0 0-0.2 10 ^3/uL Nucleated Red Blood Cells 0.1 % Prothrombin Time 10.3 9.3-11.8 sec Prothrombin Time INR 0.97 0.9-1.15 Activated Partial Thromboplast Time 25.2 24.5-34.5 SEC Sodium Level 141 136-145 mmol/L Potassium Level 4.0 3.5-5.1 mmol/L Chloride Level 106 98-107 mmol/L Carbon Dioxide Level 24 20-31 mmol/L Anion Gap 11 5-15 Blood Urea Nitrogen 19 9-23 mg/dL Creatinine 1.28 H 0.550-1.02 mg/dL Glomerular Filtration Rate Calc 45 >90 mL/min BUN/Creatinine Ratio 14.8 10.0-20.0 Serum Glucose 116 H 74-106 mg/dL Hemoglobin A1c 8.1 H <5.7 % A1C Calcium Level 9.7 8.7-10.4 mg/dL Total Bilirubin 0.4 0.2-1.0 mg/dL Aspartate Amino Transferase (AST) 39 13-40 U/L Alanine Aminotransferase (ALT) 29 7-40 U/L Alkaline Phosphatase 90 46-116 U/L Total Protein 8.1 5.7-8.2 g/dL Albumin 4.6 3.2-4.8 g/dL Triglycerides Level 208 H < 150 mg/dL Cholesterol Level 220 H < 200 mg/dL LDL Cholesterol 130 H < 100 mg/dL HDL Cholesterol 68 H 40-59 mg/dL Troponin I High Sensitivity 195 *H </=34 ng/L B-Type Natriuretic Peptide 55.32 0-100 pg/mL SEPSIS Sepsis Screen Date sepsis recognized/suspect: Sep 08, 2025 Time Sepsis recognized/suspect: 002 Recent Procedure: No On Antibiotic Therapy: No Respiratory Rate >20: No Heart Rate >90: No Temp<36 C (96.8 F) or >38.3 C: No SBP <90 or MAP <65 mmHG: No New Acute Mental Status Change: No Is the patient on CPAP, BIPAP,: No Physician Orders Application Support Administrator (09/07/25 ) Orthostatic Vital Signs (09/07/25 ) Saline Lock (09/07/25 22:32) Fall Precautions Initiated (09/07/25 22:32) Vital Signs Q1HR (09/07/25 22:32) Blood Pressure (09/07/25 ) Blood Pressure (09/08/25 ) Notify Md If Abnormal Vs (09/07/25 22:32) Application Support Administrator (09/07/25 ) Saline Lock (09/07/25 22:32) Continous Pulse Oximetry (09/07/25 22:32) Oxygen (09/07/25 ) Titrate Oxygen (09/07/25 22:32) Admit (09/08/25 02:45) 2 Gm Sodium Diet (09/08/25 Breakfast) Ondansetron Hcl (Zofran) (09/08/25 02:45) Echo 2d Mode Cardiac Dop (09/08/25 02:45) Condition: Serious (09/08/25 02:45) Bedrest With Bathroom Privileg (09/08/25 02:45) Stat Ekg For Chest Pain (09/08/25 02:45) Notify Md Of Changes From Base (09/08/25 02:45) Aws Consultant For 24 Hours (09/08/25 02:45) Emergency Dysrhythmia Protocol (09/08/25 02:45) Rhythm Strips Once Every Shift (09/08/25 02:45) Head Without Contrast (09/08/25 02:45) Urinalysis (09/08/25 02:45) Drug Screen (09/08/25 02:45) Hydrochlorothiazide Tablet (Hydrochlorot (09/08/25 10:00) Amlodipine Tablet (Norvasc Tablet) (09/08/25 10:00) Losartan Tablet (Cozaar Tablet) (09/09/25 10:00) Aspirin Chewable Tablet (09/08/25 10:00) Insulin Lantus (Glargine) (Lantus) (09/08/25 22:00) Glucose Blood (Accu-Chek Comfort Curve T (09/08/25 07:00) Mild Sliding Scale (09/08/25 07:00) Dextrose 50% Syringe (09/08/25 05:30) Atorvastatin (Lipitor) (09/08/25 22:00) NS (09/08/25 05:30) Chest Xray 1 View (09/08/25 05:16) Enoxaparin Sodium (Lovenox) (09/08/25 10:00) Pantoprazole Tablet (Protonix Tablet) (09/08/25 06:00) Vital Signs Date Time Temp Pulse Resp B/P (MAP) Pulse Ox O2 Delivery O2 Flow Rate FiO2 09/08/25 02:23 77 18 178/81 (113) 100 09/08/25 00:27 82 16 99 Room Air* 0 21 09/08/25 00:20 98.5 82 16 178/79 (112) 99 98.5 09/07/25 22:36 96 09/07/25 22:16 96 09/07/25 22:10 98.0 88 18 178/82 98 98.0 Laboratory Tests Test 09/07/25 22:44 09/08/25 03:14 White Blood Count 6.3 10^3/uL (4.4-10.8) 8.4 10^3/uL (4.4-10.8) # Medications Medications Dose Ordered Sig/Tab Route Start Time Stop Time Status Last Admin Dose Admin Sodium Chloride 1,000 ml @ 1,000 mls/hr Q1H ONCE IV 09/07/25 22:45 09/07/25 23:44 DC 09/08/25 00:09 1,000 MLS/HR Assessment/Plan Assessment/Plan Hypertensive emergency Syncope likely vasovagal NSTEMI type 2 - head CT showed No acute intracranial abnormality. Mild generalized volume loss with chronic small vessel ischemic change. - monitor blood pressure - Losartan 100 mg - Hydrochlorothiazide - amlodipine - aspirin Diabetes mellitus HbA1c 8.1 - Lantus 10 - mild sliding scale hyperlipidemia - atorvastatin CKD stage III PPI prophylaxis: protonix DVT prophylaxis: Lovenox Goals of care addressed with the patient for more than 27 minutes: Full code status Case discussed with Dr. San , patient and nurse Plan discussed with: Patient My Orders Orders - YOSELIN CHEN RESIDENT Procedure Category Date Status Time Admit ADMIT 09/08/25 Transmitted 02:45 2 Gm Sodium Diet DIET 09/08/25 Transmitted Breakfast Ondansetron Hcl PHA 09/08/25 In Process (Zofran) 02:45 Echo 2d Mode Cardiac US 09/08/25 Logged DOP 02:45 Condition: Serious [facility] 09/08/25 In Process 02:45 Bedrest With Bathroom [facility] 09/08/25 In Process Privileg 02:45 Stat Ekg For Chest [facility] 09/08/25 In Process Pain 02:45 Notify Of Changes [facility] 09/08/25 In Process From Base 02:45 Aws Consultant For [facility] 09/08/25 In Process 24 Hours 02:45 Emergency Dysrhythmia [facility] 09/08/25 In Process Protocol 02:45 Rhythm Strips Once [facility] 09/08/25 In Process Every Shift 02:[address] 09/08/25 Resulted 02:45 Urinalysis LAB 09/08/25 Logged 02:45 Drug Screen LAB 09/08/25 Logged 02:45 Hydrochlorothiazide PHA 09/08/25 In Process Tablet (Hydrochlorot 10:00 Amlodipine Tablet PHA 09/08/25 In Process (Norvasc Tablet) 10:00 Losartan Tablet PHA 09/09/25 In Process (Cozaar Tablet) 10:00 Aspirin Chewable PHA 09/08/25 In Process Tablet 10:00 Insulin Lantus PHA 09/08/25 Transmitted (Glargine) (Lantus) 22:00 Glucose Blood PHA 09/08/25 Transmitted (Accu-Chek Comfort 07:00 Mild Sliding Scale PHA 09/08/25 Transmitted 07:00 Dextrose 50% Syringe PHA 09/08/25 Transmitted 05:30 Atorvastatin (Lipitor) PHA 09/08/25 Transmitted 22:00 NS PHA 09/08/25 Transmitted 05:30 Chest Xray 1 View XY 09/08/25 Transmitted 05:16 Enoxaparin Sodium PHA 09/08/25 Transmitted (Lovenox) 10:00 Pantoprazole Tablet PHA 09/08/25 Transmitted (Protonix Tablet) 06:00 Visit Coding STANDARD RES Billing Provider: MICHAEL SAN MD Date of Service if different f: Sep 08, 2025 Common Visit Codes: 65552-[id number] INP/OBS CARE (HIGH) Secondary Visit Codes: 20733-[id number] CARE PLAN 30 MINUTES YOSELIN CHEN Sep 08, 2025 05:26
[2025-09-08] MEDS ORDERED: DEXTROSE (50%) 50ML SYRG IV PRN (05:30)
[2025-09-08] MEDS: SODIUM CHLORIDE 0.9% 500 ML IV ONE (05:53)
[2025-09-08] MEDS: PANTOPRAZOLE 40 MG TAB PO SCH (05:54)
[2025-09-08] MEDS: ACCU-CHEK COMFORT CURVE STRIP VI SCH (05:54)
[2025-09-08] MEDS: InsuLIN REG 1unit/0.01ml Soln (100units/ml) SC SCH (07:00)
[2025-09-08 07:40] VITALS: PULSE 86; RESP 17; TEMP 99.4; O2SAT 99
--- NOTE | 2025-09-08 07:53 | DVH ---
CHEST RADIOGRAPH INDICATION: sob TECHNIQUE: Single frontal view of the chest was obtained COMPARISON: None FINDINGS: Lines and Tubes: None Lungs: Reticular opacities may reflect pulmonary interstitial edema versus atypical pneumonia. Pleura: No effusion. No pneumothorax. Cardiomediastinal contours: Unremarkable Bones: No acute osseous abnormality. IMPRESSION: 1. Reticular opacities may reflect pulmonary interstitial edema versus atypical pneumonia.
[2025-09-08 09:31] LABS: Urine Protein, UAD Negative (Negative)
[2025-09-08 10:22] LABS: Amphetamine Screen, Urine Neg (NEGATIVE); Barbiturate Scree,Urine Neg (NEGATIVE); Benzodiazephine Screen, Urine Neg (NEGATIVE); Cannabinoid Screen, Urine Neg (NEGATIVE); Cocaine Screen, Urine Neg (NEGATIVE); Opiate Scree,Urine Neg (NEGATIVE); Phencyclidine Screen, Urine Neg (NEGATIVE)
[2025-09-08] MEDS: ENOXAPARIN SOD 40 MG/0.4 ML SYRINGE SC SCH (11:05)
[2025-09-08 12:00] VITALS: BP 150/63; PULSE 89; RESP 20; O2SAT 98
--- NOTE | 2025-09-08 17:10 | DVHDS2 ---
Discharge Summary Date of Admission Sep 08, 2025 at 02:45 Date of Discharge: Sep 08, 2025 Labs/Diagnostic Data: Laboratory Results Test 09/08/25 11:47 09/08/25 09:08 09/08/25 03:14 09/08/25 01:25 POC Glucose 123 mg/dl (70-106) Urine Color Light-yellow (Yellow) Urine Clarity Clear (Clear) Urine pH 7.5 (5.0-9.0) Urine Specific [place] 1.006 (1.001-1.035) Urine Protein Negative (Negative) Urine Ketones Negative (Negative) Urine Blood Negative /uL (Negative) Urine Nitrite Negative (Negative) Urine Bilirubin Negative (Negative) Urine Urobilinogen Normal mg/dL (Negative) Urine Leukocyte Esterase 1+ /uL (Negative) Urine RBC 2 /hpf (0 - 4) Urine Microscopic WBC 12 /HPF (0-5) Urine Squamous Epithelial Cells Few /hpf (<5) Urine Bacteria Few /hpf (None Seen) Urine Glucose Normal mg/dL (Normal) Urine Opiates Screen Neg (NEGATIVE) Urine Fentanyl Screen Neg (NEGATIVE) Urine Barbiturates Screen Neg (NEGATIVE) Urine Phencyclidine Screen Neg (NEGATIVE) Urine Amphetamines Screen Neg (NEGATIVE) Urine Benzodiazepines Screen Neg (NEGATIVE) Urine Cocaine Screen Neg (NEGATIVE) Urine Cannabinoids Screen Neg (NEGATIVE) White Blood Count 8.4 10^3/uL (4.4-10.8) Red Blood Count 4.03 10^6/uL (4.0-5.20) Hemoglobin 12.8 g/dL (12.2-16.2) Hematocrit 37.6 % (36.0-46.0) Mean Corpuscular Volume 93.4 fL (80.0-100.0) Mean Corpuscular Hemoglobin 31.7 pg (28.0-32.0) Mean Corpuscular Hemoglobin Concent 33.9 g/dL (32.0-36.0) Red Cell Distribution Width 13.4 % (11.8-14.3) Platelet Count 263 10^3/uL (140-450) Mean Platelet Volume 7.9 fL (6.9-10.8) Neutrophils (%) (Auto) 49.0 % (37.0-80.0) Lymphocytes (%) (Auto) 42.6 % (10.0-50.0) Monocytes (%) (Auto) 7.1 % (0.0-12.0) Eosinophils (%) (Auto) 1.0 % (0.0-7.0) Basophils (%) (Auto) 0.3 % (0.0-2.0) Neutrophils # (Auto) 4.1 10 ^3/uL (1.6-8.6) Lymphocytes # (Auto) 3.6 10 ^3/uL (0.4-5.4) Monocytes # (Auto) 0.6 10 ^3/uL (0-1.3) Eosinophils # (Auto) 0.1 10 ^3/uL (0-0.8) Basophils # (Auto) 0 10 ^3/uL (0-0.2) Nucleated Red Blood Cells 0.1 % Prothrombin Time 10.3 sec (9.3-11.8) Prothrombin Time INR 0.97 (0.9-1.15) Activated Partial Thromboplast Time 25.2 SEC (24.5-34.5) Sodium Level 141 mmol/L (136-145) Potassium Level 4.0 mmol/L (3.5-5.1) Chloride Level 106 mmol/L (98-107) Carbon Dioxide Level 24 mmol/L (20-31) Anion Gap 11 (5-15) Blood Urea Nitrogen 19 mg/dL (9-23) Creatinine 1.28 mg/dL (0.550-1.02) Glomerular Filtration Rate Calc 45 mL/min (>90) BUN/Creatinine Ratio 14.8 (10.0-20.0) Serum Glucose 116 mg/dL (74-106) Hemoglobin A1c 8.1 % A1C (<5.7) Calcium Level 9.7 mg/dL (8.7-10.4) Total Bilirubin 0.4 mg/dL (0.2-1.0) Aspartate Amino Transferase (AST) 39 U/L (13-40) Alanine Aminotransferase (ALT) 29 U/L (7-40) Alkaline Phosphatase 90 U/L (46-116) Total Protein 8.1 g/dL (5.7-8.2) Albumin 4.6 g/dL (3.2-4.8) Triglycerides Level 208 mg/dL (< 150) Cholesterol Level 220 mg/dL (< 200) LDL Cholesterol 130 mg/dL (< 100) HDL Cholesterol 68 mg/dL (40-59) Troponin I High Sensitivity 195 ng/L (</=34) Test 09/07/25 22:44 B-Type Natriuretic Peptide 55.32 pg/mL (0-100) Other Laboratory Tests 09/08/25 03:14 Brief Hx & Hospital Course: Patient is a 70-year-old female with past medical history of hypertension, diabetes, dyslipidemia, CKD who presented to the ED with chief complaints of dizziness and syncopal episode. As per patient and son at bedside They had a argument and patient started hyperventilating, feeling weak and dizzy after which she had a syncopal episode and had loss of consciousness for almost 4 minutes. states that the [id number] caught her while she was falling so patient did not hit her head. Patient denies any chest pain, shortness of breath, nausea, vomiting, dizziness. On arrival blood pressure was 204/73. PMHx: hypertension, diabetes, dyslipidemia, CKD PSHx: Cholecystectomy, Family history: reviewed, noncontributory Social history: denies smoking, drinking, drug use Home medication: glipizide, insulin, atorvastatin, pantoprazole She is admitted and this afternoon she left against medical advice. I was notified by the nurse after patient left AMA. Condition at Discharge: Undetermined Final Diagnosis/Problems List Hypertensive emergency Syncope likely vasovagal NSTEMI type 2 Discharge Disposition: AMA Discharge Statement: "Patient was advised to return to the ER or call 911 if any headaches, dizziness, shortness of breath, chest pain, abdominal pain, bleeding, fevers, or worsening of medical condition. Patient was counseled about treatment plan, medications, possible side effects, patientverbalized understanding. All questions were answered to the best of my ability. This discharge took greater then 30 minutes in planning, reviewing documentation, counseling the patient, and discussing with other team members." ASSESSMENT ASSESSMENT Assessment Date of Service: Sep 08, 2025 Billing Provider: FLORECITA PADGETT MD Common Visit Codes: 37973-RHJ/OBS DISCH DAY <30MIN FLORECITA PADGETT MD Sep 08, 2025 17:10
[2025-09-08] MEDS ORDERED: INSULIN LANTUS (GLARGINE) 1 /0.01ml (100units/ml) SC SCH (22:00)
[2025-09-08] MEDS ORDERED: ATORVASTATIN 20 MG TAB PO SCH (22:00)
[2025-09-09] MEDS ORDERED: LOSARTAN POTASSIUM 50 MG TAB PO SCH (10:00)
== END 2025-09-08 13:34 | disposition left against medical advice (07) | DRG 282 ==
LOC: EDBD 22:05 → ER 22:05 → OVERFLOW 09-08 02:45
PROVIDERS: ATTEND Internal Medicine
DX: I16.1 Hypertensive emergency (principal); I21.A1 Myocardial infarction type 2; N18.30 Chronic kidney disease, stage 3 unspecified; I12.9 Hypertensive chronic kidney disease with stage 1 through stage 4 chronic kidney disease, or unspecified chronic kidney disease; E11.22 Type 2 diabetes mellitus with diabetic chronic kidney disease; E78.5 Hyperlipidemia, unspecified; Z53.29 Procedure and treatment not carried out because of patient's decision for other reasons; Z90.49 Acquired absence of other specified parts of digestive tract
CPT/HCPCS: 36415; 70450; 71045; 80048; 80053; 80061; 80307; 81001; 82962; 83036; 83880; 84484; 85025; 85610; 85730; 93005; G0378